=== PATIENT | female | born 1975 | race Asian ===

== ENCOUNTER 2024-06-24 19:37 | Emergency (ER) | payer SELFPAY ==
[2024-06-24 20:05] VITALS: O2SAT 99
--- NOTE | 2024-06-24 20:35 | ED Physician Documentation ---
PD HPI LOWER EXT INJURY - Stated complaint Stated Complaint: FALL/ LT ANKLE INJ - Chief complaint Chief Complaint: Ext Problem - History obtained from History obtained from: Patient - History of Present Illness PD HPI LOW EXT INJURY LOCATION: Left, Ankle Type of injury: Fall Where injury occurred: Street Timing - onset: Today Timing - duration: Minutes (30) Timing - details: Abrupt onset Pain level max: 7 Pain level now: 5 Improved by: Rest Worsened by: Moving, Palpating Associated symptoms: Swelling. No: Numbness, Tingling Contributing factors: No: Anticoagulated - Additional information Additional information: Patient is a 49-year-old female who states that she was walking to get into her car when she rolled her left ankle. Now has pain and swelling. Worse with walking, better with rest. Noted swelling to the ankle as well. No numbness or tingling. No discoloration. Not anticoagulated. No other acute injuries. Review of Systems Constitutional: denies: Fever, Chills GI: denies: Vomiting : denies: Now EGA Neurologic: denies: Headache PD PAST MEDICAL HISTORY - Past Medical History Past Medical History: Yes Cardiovascular: Hypertension, High cholesterol Respiratory: None Neuro: None Endocrine/Autoimmune: None GI: None [employer]: None : None Psych: None Musculoskeletal: None Derm: None - Past Surgical History Past Surgical History: No - Present Medications Home Medications: Ambulatory Orders Medication Instructions Recorded Confirmed Losartan [Cozaar] 50 mg PO DAILY 06/24/24 06/24/24 - Allergies Allergies/Adverse Reactions: Allergies Allergy/AdvReac Type Severity Reaction Status Date / Time No Known Drug Allergies Allergy Verified 06/24/24 19:49 - Social History Does the pt smoke?: No Smoking Status: Never smoker Does the pt drink ETOH?: No Does the pt have substance abuse?: No - Immunizations Immunizations are current?: Yes - POLST Patient has POLST: No PD ED PE NORMAL - Vitals Vital signs reviewed: Yes - General General: Alert and oriented X 3, No acute distress - HEENT HEENT: Atraumatic, PERRL, Moist mucous membranes - Neck Neck: Supple, no meningeal sign, No bony TTP - Cardiac Cardiac: RRR - Respiratory Respiratory: No respiratory distress, Clear bilaterally - Derm Derm: Warm and dry - Extremities Extremities: Other (Slight abrasion to the palm of the left hand. Left ankle with swelling to the lateral malleolus. Tender to palpation over the lateral malleolus as well. Otherwise normal examination of the left foot and ankle. NVI) - Neuro Neuro: Alert and oriented X 3 - Psych Psych: Normal mood, Normal affect Results - Vitals Vitals: Vital Signs - 24 hr 06/24/24 06/24/24 19:51 21:50 Temperature 36.7 C Heart Rate 86 83 Respiratory 16 16 Rate Blood Pressure 208/89 H 211/94 H O2 Saturation 99 99 Oxygen O2 Source Room air - Rads (name of study) L ankle xray Relevant Findings:: Final report received, See rad report PD Medical Decision Making - ED course Complexity details: reviewed results, considered differential, d/w patient ED course: No acute findings on x-ray of the left ankle. No evidence of Rexer. Placed in a gel splint for comfort. Given crutches. Declines pain medication here or for home. Her abrasion to the left palm was cleansed by the RN. Patient may be weightbearing as tolerated. Patient counseled regarding signs and symptoms for which I believe and urgent re-evaluation would be necessary. Patient with good understanding of and agreement to plan and is comfortable going home at this time This document was made in part using voice recognition software. While efforts are made to proofread this document, sound alike and grammatical errors may occur. Departure - Departure Disposition: 01 Home, Self Care Clinical Impression: Sprain of ankle, left Qualifiers: Encounter type: initial encounter Involved ligament of ankle: unspecified ligament Qualified Code(s): S93.402A - Sprain of unspecified ligament of left ankle, initial encounter Condition: Good Instructions: ED Sprain Ankle Follow-Up: your,doctor in 1 week [Other] Comments: Your x-ray does not show any acute fractures today there is no evidence of dislocation. You appear to have a ankle sprain. This should improve on its own over the next few days. Please return if you worsen. You may bear weight as tolerated. You can use Motrin or Tylenol as needed for pain. Forms: PCP List Discharge Date/Time: 06/24/24 21:51
--- NOTE | 2024-06-24 21:26 | XRAY Report ---
PROCEDURE: Ankle 3+V LT INDICATIONS: twisting injury TECHNIQUE: 4 views of the ankle were acquired. COMPARISON: None. FINDINGS: Bones: No fractures or dislocations. Ankle mortise is normally aligned. No suspicious bony lesions . Small plantar calcaneal spur. Soft tissues: No tibiotalar joint effusion. Achilles tendon appears normal. IMPRESSION: No fracture demonstrated. Reviewed by: Ronnie Gill MD on 06/24/2024 9:24 PM PDT Approved by: Ronnie Gill MD on 06/24/2024 9:24 PM PDT Station ID: [id number]
[2024-06-24] MEDS: ACETAMINOPHEN 325 MG TABLET PO STA (21:36)
[2024-06-24 21:59] VITALS: BP 211/94
== END 2024-06-24 21:51 | disposition home or self-care (01) ==
LOC: ED 19:37
DX: S93.402A Sprain of unspecified ligament of left ankle, initial encounter (principal); X50.1XXA Overexertion from prolonged static or awkward postures, initial encounter; Y93.01 Activity, walking, marching and hiking; I10 Essential (primary) hypertension; E78.00 Pure hypercholesterolemia, unspecified
CPT/HCPCS: 99283